=== PATIENT | male | born 1965 | race Caucasian/White ===

== ENCOUNTER → 2016-06-23 | Outpatient (CLI) | payer OTHER ==
[2016-06-23 13:33] LABS: ESTIMATED AVERAGE GLUCOSE 128 mg/dl; HA1C FLAG Normal (Normal)
== END | disposition home or self-care (01) ==
LOC: C.LABPVFM 08:47
PROVIDERS: ATTEND Nurse Practitioner Family
DX: R73.01 Impaired fasting glucose (principal)

== ENCOUNTER → 2016-07-20 | Outpatient (CLI) | payer OTHER ==
[2016-07-20 12:54] LABS: CHOLESTEROL/HDL RATIO 4.4
[2016-07-20 12:57] LABS: ALT/SGPT 39 U/L (12-78); AST/SGOT 22 U/L (15-37); BLOOD UREA NITROGEN 15 mg/dl (7-18); BUN/CREATININE RATIO 16.1 (10-20); CALCIUM 8.8 mg/dl (8.5-10.1); CARBON DIOXIDE 28 mmol/L (21-32); CHLORIDE 103 mmol/L (98-107); CREATININE 0.94 mg/dl (0.60-1.40); GLUCOSE 112 mg/dl (70-99); POTASSIUM 4.3 mmol/L (3.5-5.1); SODIUM 139 mmol/L (136-145)
[2016-07-20 12:59] LABS: ALB/GLOB RATIO 1.2 (0.9-2); ALKALINE PHOSPHATASE 77 U/L (45-117)
== END | disposition home or self-care (01) ==
LOC: C.LABPVFM 08:09
PROVIDERS: ATTEND Nurse Practitioner Family
DX: E78.5 Hyperlipidemia, unspecified (principal); R73.01 Impaired fasting glucose; J44.1 Chronic obstructive pulmonary disease with (acute) exacerbation; Z11.59 Encounter for screening for other viral diseases

== ENCOUNTER → 2016-09-03 | Outpatient (CLI) | payer OTHER ==
--- NOTE | 2016-09-03 10:01 | DIAGNOSTIC IMAGING REPORT ---
CHEST 2 VIEWS ROUTINE HISTORY: WHEEZING COMPARISON: None. FINDINGS: The right lung is clear. Linear density at the left lung base. No pleural effusions. No pneumothorax. The heart is normal in size. IMPRESSION: Linear densities within the lingula suggestive of subsegmental atelectasis or scarring. Otherwise, no acute process within the chest. Electronically signed by: Onesimo Gooden M.D. 09/03/2016 10:00 AM Dictated Date/Time: 09/03/2016 9:58 AM
== END | disposition home or self-care (01) ==
LOC: C.RADPV 09:24
PROVIDERS: ATTEND Nurse Practitioner Family
DX: R06.2 Wheezing (principal)

== ENCOUNTER → 2016-09-21 | Outpatient (CLI) | payer OTHER ==
--- NOTE | 2016-09-21 08:33 | DIAGNOSTIC IMAGING REPORT ---
SINUSES MIN 3 VIEWS ROUTINE CLINICAL HISTORY: Wheezing COPD exacerbation. Nasal congestion. COMPARISON STUDY: None. FINDINGS: The paranasal sinuses and mastoid air cells are clear. The nasal septum is essentially midline. Orbital floors and lamina papyracea. Intact. No fluid levels identified. IMPRESSION: The paranasal sinuses and mastoid air cells are clear. Electronically signed by: Onesimo Gooden M.D. 09/21/2016 8:31 AM Dictated Date/Time: 09/21/2016 8:30 AM
== END | disposition home or self-care (01) ==
LOC: C.RADPV 07:54
PROVIDERS: ATTEND Nurse Practitioner Family
DX: J44.1 Chronic obstructive pulmonary disease with (acute) exacerbation (principal); R06.2 Wheezing

== ENCOUNTER → 2016-09-22 | Outpatient (CLI) | payer OTHER | END | disposition home or self-care (01) | LOC: C.LABPVFM 11:36 | PROVIDERS: ATTEND Nurse Practitioner Family | DX: J44.1 Chronic obstructive pulmonary disease with (acute) exacerbation (principal); R06.2 Wheezing ==

== ENCOUNTER → 2016-09-24 | Outpatient (CLI) | payer OTHER ==
[2016-09-24 12:42] LABS: INR 0.9 (0.9-1.1); PARTIAL THROMBOPLASTIN RATIO 1.2
[2016-09-24 12:58] LABS: BASO % 0.5 %; BASO ABS # 0.04 K/uL (0-0.2); COMPLETE YES; EOS % 5.1 %; HEMATOCRIT 46.4 % (42-52); IG% 0.3 %; LYMPH % 25.9 %; MEAN CELL VOLUME 91.2 fL (80-100); MEAN CORPUSCULAR HEMOGLOBIN 30.5 pg (25-34); MEAN CORPUSCULAR HGB CONC 33.4 g/dl (32-36); MONO % 7.3 %; NEUT % 60.9 %; PLATELET COUNT 258 K/uL (130-400); RED BLOOD COUNT 5.09 M/uL (4.7-6.1); WHITE BLOOD COUNT 8.87 K/uL (4.8-10.8)
[2016-09-24 15:17] LABS: BLOOD UREA NITROGEN 18 mg/dl (7-18); BUN/CREATININE RATIO 20.6 (10-20); CALCIUM 8.7 mg/dl (8.5-10.1); CARBON DIOXIDE 27 mmol/L (21-32); CHLORIDE 107 mmol/L (98-107); CREATININE 0.87 mg/dl (0.60-1.40); GLUCOSE 137 mg/dl (70-99); POTASSIUM 4.4 mmol/L (3.5-5.1); SODIUM 140 mmol/L (136-145)
== END | disposition home or self-care (01) ==
LOC: C.LABPVFM 08:18
PROVIDERS: ATTEND Physician Assistant
DX: R04.2 Hemoptysis (principal)

== ENCOUNTER → 2016-09-24 | Outpatient (CLI) | payer OTHER ==
--- NOTE | 2016-09-24 09:59 | DIAGNOSTIC IMAGING REPORT ---
CT OF THE CHEST WITHOUT IV CONTRAST CLINICAL HISTORY: Hemoptysis COMPARISON STUDY: Chest x-ray dated 09/03/2016 CT DOSE: 303.50 mGy.cm TECHNIQUE: CT of the thorax was performed from the thoracic inlet to the lung bases. Images are reviewed in the axial, sagittal, and coronal planes. IV contrast was not administered for this examination. FINDINGS: Thyroid: Imaged portions of the thyroid gland are normal in appearance. Thoracic aorta: There is mild dilatation of the ascending thoracic aorta which measures 41 mm. Heart: The heart is within normal limits in size. There are mild coronary calcifications. Lungs and pleural spaces: There are no pleural effusions. There is no focal pulmonary consolidation. No endobronchial lesions are visualized. There is mild lower lobe bronchial wall thickening. There is a 5 mm very low suspicion left lower lobe perifissural solid nodule. Mediastinum: There are borderline enlarged paratracheal and subcarinal lymph nodes. Kalpana: Hilar structures are difficult to evaluate given the lack of intravenous contrast. Borderline enlarged hilar lymph nodes are suspected Axilla: Clear. Upper abdomen: Partially visualized upper abdominal viscera is within normal limits. Skeletal structures: There is a T9 vertebral body hemangioma IMPRESSION: 1. Borderline enlarged mediastinal and hilar lymph nodes 2. Mild ectasia of the ascending thoracic aorta which measures 41 mm 3. Mild lower lobe bronchial wall thickening 4. Very low suspicion left lower lobe 5 mm solid perifissural nodule Electronically signed by: Amauri Subramanian M.D. 09/24/2016 9:58 AM Dictated Date/Time: 09/24/2016 9:52 AM
== END | disposition home or self-care (01) ==
LOC: C.CTS 09:41
PROVIDERS: ATTEND Internal Medicine Pulmonary Disease
DX: R04.2 Hemoptysis (principal); Z12.11 Encounter for screening for malignant neoplasm of colon; R91.8 Other nonspecific abnormal finding of lung field

== ENCOUNTER → 2017-07-27 | Outpatient (CLI) | payer OTHER ==
--- NOTE | 2017-07-28 06:18 | PAP/PSG TECHNICIAN REPORT ---
[facility] [employer] Polysomnogram Report Study name: None Report date: 07/28/2017 Study date: 07/27/2017 Referring Physician: Reggie Saenz M.D. Name: JENIFFER, DAIJA Devries Interpreting Physician: Gaudencio Sweeney D.O. Date of : 1965 [employer] Learning Support Teacher: Kelly Batista, PSGT. Sex: Male Age: 51 StudyType: PSG Weight: 198 lbs Height: 51 years, Height 5' 7" Neck Circum:16 inches BMI: 31.01 Medications: Anoro Ellipta 62.5-25 MCG, Azithromycin 250 mg, Albuterol 0.5-2.5 mg, Venolin HFA, Nebulizer. Patient History 51 yr. old male here for a titration sleep study, he had a home sleep study done on 10/22/16, an AHI of 20.8.Pt. [facility] medical hx of COPD.ESS= 9, Neck= 16 inches. Parameters Monitored NPSG: E1-M2, E2-M1, Fp1-M2, Fp2-M1, F3-M2, F4-M2, F4-M1, C3-M2, C4-M2, C4-M1, O1-M2, O2-M2, O2-M1, T3-M2, T4-M1, P3-M2, P4-M1, CHIN1, CHIN2, HR, EKG, Legs, PFLOW, SNOR, FLOW, CFLOW, Tidal Volume, THOR, ABDO, SpO2, PLTH, CPRESS, ETCO2 Wave, ETCO2, pH Sleep Architecture Sleep Stages Time at Lights Off 8:15:21 PM STAGES Time (min.) TST (%) Time at Lights On 5:37:51 AM Wake 153.0 -- Total Recording Time (TRT) 564.00 min. N1 26.0 6 Total Sleep Period (TSP) 473.5 min. N2 284.5 69 Total Sleep Time (TST) 409.5min. N3 2.0 0 Awake Time 154.5 min. REM 97.0 24 Wake after Sleep Onset 90.5 min. Sleep Efficiency (SE) 73 % Sleep Onset Latency (BENNY) 62.5 min. Number of Stage 1 Shifts None Awakenings 15 Stage Changes 68 Number of REM periods 5 REM 97.0 24 REM Latency 127.5 min. NREM 312.5 76 Body Position Analysis Supine Right Left Side Prone Vertical Total Sleep Time (min.) 283.0 75.0 153.9 228.85 0.0 0.2 Total Sleep Time (%) 44% 18% 38% 56 0% N/A% Total Sleep Time REM (min.) 14.7 19.0 63.3 None 0.0 0.0 Total Sleep Time NREM (min.) 166.0 56.0 90.5 None 0.0 0.0 Intermittent Wake (min.) 102.4 27.5 22.9 None 0.0 0.2 Total Sleep Period (%) 49% None None None None None Arousals Myoclonus (PLM) * Events Count Index Events Count Index Spontaneous 56 8 Events Awake (PLMW) 3 1.2 Respiratory 4 0.6 Events Asleep w/ Arousal (PLMA) 14 2.1 PLM 13 2 Events Asleep w/o Arousal (PLMS) 200 29.3 Snoring 3 0 Total Asleep 214 31.4 Total 76 11 Total 217 23 Respiratory Analysis * CA OA MA CH H RERA Total Count 2 0 0 0 30 0 32 Index 0.3 0.0 0.0 0 4.4 0 4.7 Mean Duration 12.1 0.0 0.0 0.00 13.5 0.0 13.4 Longest Duration 12.3 0.0 0.0 0.00 0.0 0.0 21.5 Respiratory Event Summary Total Supine ~Supine Right Left Prone REM NREM Apneas Count 2 0 2 1 1 N/A 0 2 Index 0.3 0 1 0.8 0.4 N/A 0 0 Hypopneas (4% Desat) Count 30 27 3 1 2 N/A 5 25 Index 4.4 9.0 1 0.8 0.8 N/A 3.1 4.8 Apneas & All Hypopneas Count 32 27 5 2 3 N/A 5 27 Index 4.7 9 1 2 1 N/A 3.1 5.2 Respiratory Events (Cell Tuber Hand+All Hyp+RERA) Count 32 27 5 2 3 N/A 5 27 Index 4.7 9 1 1.6 1.2 N/A 3.1 5.2 Respiratory Related Arousal Count 4 27 1 0 1 N/A 0 4 Index 0.6 1 0 0 0 N/A 0 1 Snoring Analysis Supine Right Left Prone REM NREM Total Snore duration 8.0 min Snores count 256 12 34 N/A 10 292 302 Snore mean duration 1.6 Sec Snores index 85 10 13 N/A 6.2 56.1 44.2 TST with snoring (%) 1.9% Desaturation Event Summary: Minimum %SpO2 Event Count Mean/Min/Max Duration(sec.) Desaturation Index % Time In Bed > 90 52 21.2 / 9.5 / 58.3 14.0 40.1 86 - 90 34 17.2 / 9.5 / 41.0 6.2 59.8 81 - 85 0 N/A 0.0 0.1 76 - 80 0 N/A 0.0 0.0 71 - 75 0 N/A 0.0 0.0 66 - 70 0 N/A 0.0 0.0 61 - 65 0 N/A 0.0 0.0 56 - 60 0 N/A 0.0 0.0 51 - 55 0 N/A 0.0 0.0 < 50 0 N/A 0.0 0.0 Total REM NREM Awake <50% 0.0 min. 0.0 min. 0.0 min. 0.0 min. 51 - 60% 0.0 min. 0.0 min. 0.0 min. 0.0 min. 61 - 70% 0.0 min. 0.0 min. 0.0 min. 0.0 min. 71 - 80% 0.0 min. 0.0 min. 0.0 min. 0.0 min. 81 - 90% 332.1 min. 52.9 min. 225.3 min. 53.9 min. 91 - 100% 222.2 min. 43.9 min. 86.9 min. 91.3 min. Average 90 90 90 91 Minimum SpO2 84 84 84 86 Desaturation Event Index 6.3 10.5 8.1 0.4 # Desat. Events below 89% 50 13 37 0 Time(%) with Saturation below 89% 8.8 2.1 5.8 0.9 Time(min.) with Saturation below 89% 48.9 11.9 32.0 5.0 Heart Rate Analysis End Tidal CO2 Analysis Min (bpm) Max (bpm) Average (bpm) TSP (mins) % of TSP Awake 31 127 75 Above 55 mmHg 0.0 0.0 NREM 55 127 69 50-55 mmHg 0.0 0.0 REM 53 99 65 45-50 mmHg 409.5 100.0 Overall 53 127 68 40-45 mmHg 0.0 0.0 35-40 mmHg 0.0 0.0 30-35 mmHg 0.0 0.0 Average ETCO2 0.0 Supplemental O2 Values Minimum O2 level: None Value Start Time End Time [employer] Comments PAP Study: Mr. Pope slept in the right, left, and supine positions. No cardiac arrhythmia or PLM's noted. No bruxism noted. CPAP was initiated at +4 CMH2O and up-titrated to an optimal level of +11 CMH2O, which nearly eliminated all respiratory events and snoring. A F [employer] P medium Simplus, was used during titration Mr. Pope awoke to use the restroom one time during the night. Mr. Pope stated, I did sleep better than I do when I am in my own bed. The final report will be interpreted and signed by a sleep physician. The completed physician report will then be placed in the patient medical record. Therapy Event: Therapy (cm H20) 0 4 6 8 9 10 11 Total Time at Pressure (min.) 1.8 69.9 46.4 30.3 56.1 196.2 161.8 TST at Pressure (min.) 0.0 7.2 35.9 26.3 56.1 154.7 129.3 # Periods 1 1 1 1 1 1 1 Sleep Onset (min.) N/A 60.7 0.0 0.0 0.0 0.0 0.0 REM Onset (min.) N/A N/A N/A N/A 41.6 0.0 20.8 Sleep Efficiency % 0 10 77 86 100 78 79 Wakefulness (%) 100.0 89.8 22.6 13.2 0.0 21.1 20.1 Wakefulness (min.) 1.8 62.7 10.5 4.0 0.0 41.5 32.5 NREM 1 (%) 0.0 3.6 21.5 23.1 0.0 1.8 1.9 NREM 1 (min.) 0.0 2.5 10.0 7.0 0.0 3.5 3.0 NREM 2 (%) 0.0 6.7 51.5 63.7 74.3 58.9 49.0 NREM 2 (min.) 0.0 4.7 23.9 19.3 41.6 115.7 79.3 NREM 3 (%) 0.0 0.0 4.3 0.0 0.0 0.0 0.0 NREM 3 (min.) 0.0 0.0 2.0 0.0 0.0 0.0 0.0 REM (%) 0.0 0.0 0.0 0.0 25.7 18.1 29.0 REM (min.) 0.0 0.0 0.0 0.0 14.4 35.6 47.0 # Arousals N/A 2 14 10 5 27 18 Arousal Index N/A 16.8 23.4 22.8 5.4 10.5 8.4 # Snore N/A 3 197 28 9 44 21 Snore Index N/A 25.2 328.9 63.9 9.6 17.1 9.7 AHI N/A 33.6 21.7 13.7 3.2 1.2 1.4 AHI Supine N/A 33.6 21.7 13.7 3.2 1.1 N/A AHI Non-Supine N/A N/A N/A N/A N/A 1.2 1.4 NREM AHI N/A 33.6 21.7 13.7 0.0 1.0 1.5 REM AHI N/A N/A N/A N/A 12.5 1.7 1.3 RDI N/A 33.6 21.7 13.7 3.2 1.2 1.4 # Obstructive N/A 0 0 0 0 0 0 # Central Ap N/A 0 0 0 0 1 1 # Mixed N/A 0 0 0 0 0 0 # Hypopneas N/A 4 13 6 3 2 2 RERAS N/A 0 0 0 0 0 0 Total Respiratory Events N/A 4 13 6 3 3 3 Time Below SpO2 89.00% (min.) 0.0 3.5 5.6 6.2 18.8 3.9 5.9 Mean NREM SpO2 (%) N/A 89 90 89 89 90 90 Mean REM SpO2 (%) N/A N/A N/A N/A 88 90 91 Mean Sleep SpO2 (%) N/A 89 90 89 89 90 90 Min NREM SpO2 (%) N/A 86 86 84 86 87 87 Min REM SpO2 (%) N/A N/A N/A N/A 84 84 87 Position Supine (min.) 0.0 7.2 35.9 26.3 56.1 55.2 0.0 Position Non-supine (min.) 0.0 0.0 0.0 0.0 0.0 99.5 129.3 LM Index Sleep N/A 58.7 45.1 27.4 12.8 59.3 1.4 LM Index NREM N/A 58.7 45.1 27.4 13.0 63.9 0.0 LM Index REM N/A N/A N/A N/A 12.5 43.9 3.8 Mean Heart Rate (bpm) N/A 75 75 71 71 67 65 Min Heart Rate (bpm) N/A 69 64 60 57 55 53
--- NOTE | 2017-08-01 11:18 | POLYSOMNOGRAPH REPORT ---
CLINICAL DATA: The patient is a 51-year-old male. He had a home sleep study done in October 2016. This showed moderate sleep apnea. He had a 3-night cumulative apnea/hypopnea index using the 4% desaturation role of 13.4 events per hour. The maximum was 20.8 events per hour. He is referred for a CPAP titration study. SLEEP ARCHITECTURE: The total sleep period was 473.5 minutes. The total sleep time was 409.5 minutes. The sleep efficiency is moderately reduced to 73%. The sleep latency was prolonged at 62.5 minutes. Wake after sleep onset was 90.5 minutes. Sleep consisted of stage N1 6%, stage N2 69%, stage N3 0%, and stage REM 24%. AROUSAL DATA: The patient had a total of 76 arousals including 56 spontaneous arousals, 4 respiratory arousals, 13 PLM arousals, and 3 snoring arousals. The arousal index was 11. PERIODIC LIMB MOVEMENT DATA: The patient had a total of 214 periodic limb movements of sleep for a PLM index of 31.4. There were 14 arousals, associated with limb movements for a PLM arousal index of only 2.1. ECHOCARDIOGRAM: The minimum heart rate was 53 beats per minute. The average heart rate was 68 beats per minute. No arrhythmias noted. RESPIRATORY DATA: The patient's respiratory events were treated with nasal CPAP, which was titrated to an optimum level of 11 cm. He had a total of 32 respiratory events including 2 central apneas and 30 hypopneas. The longest apnea was 12.3 seconds. The mean duration of the hypopneas was 13.5 seconds. The apnea/hypopnea index was 4.7 events per hour. He was at the final pressure of 11 cm for 161.8 minutes. The apnea/hypopnea index at this level was only 1.4. OXIMETRY DATA: The average saturation was 90%. The minimum saturation was 84%. There was a total of 48.9 minutes with saturations less than 89%. This primarily occurred in the first half of the night when the pressures were being titrated upward. There was no significant desaturations at the final pressure. VARITYPIST COMMENTS: The patient slept in the right, left, and supine positions. No arrhythmia noted. No bruxism noted. CPAP was initiated at 4 cm and up titrated to an optimal level of 11 cm which nearly eliminated all respiratory events and snoring. A [employer] Simplus size medium was used during the titration. The patient awakened to use the restroom one time during the night. He stated that he did sleep better than he does when he is in his own bed. IMPRESSION: Moderate obstructive sleep apnea -- resolved with nasal CPAP at 11 cm. COMMENTS: The patient overall did well with the CPAP titration. He had marked difficulty initiating sleep. His sleep became more consolidated as the night went on but we still had some awakenings. He had no significant residual apnea at the final pressure. There were no significant desaturations at the final pressure. RECOMMENDATIONS: 1. It is advised that the patient be started on nasal CPAP at 11 cm. 2. It is suggested that he be ordered a [employer] Simplus mask, size medium. 3. It is suggested that the patient avoid sleeping in the supine position. 4. Weight loss is advised in light of the elevation of body mass index of 31.01.
== END | disposition home or self-care (01) ==
LOC: C.NEUR 20:00
PROVIDERS: ATTEND Physician Assistant
DX: G47.33 Obstructive sleep apnea (adult) (pediatric) (principal); J44.9 Chronic obstructive pulmonary disease, unspecified; H54.7 Unspecified visual loss; F17.210 Nicotine dependence, cigarettes, uncomplicated

== ENCOUNTER → 2017-08-02 | Outpatient (CLI) | payer OTHER ==
--- NOTE | 2017-08-02 13:25 | DIAGNOSTIC IMAGING REPORT ---
CHEST 2 VIEWS ROUTINE HISTORY: 51 years-old Male ACUTE BRONCHITIS COMPARISON: Chest radiographs 09/03/2016, chest CT 10/03/2016 TECHNIQUE: PA and lateral views of the chest FINDINGS: Cardiomediastinal and hilar silhouettes are within normal limits. Linear subsegmental left basilar opacities suggest atelectasis. There is no pneumothorax, pleural effusion, focal airspace consolidation or overt pulmonary edema. Bones of the chest appear grossly intact. IMPRESSION: No acute process. The above report was generated using voice recognition software. It may contain grammatical, syntax or spelling errors. Electronically signed by: Poncho Scott M.D. 08/02/2017 1:24 PM Dictated Date/Time: 08/02/2017 1:22 PM
== END | disposition home or self-care (01) ==
LOC: C.RADPV 13:11
PROVIDERS: ATTEND Family Medicine
DX: J20.9 Acute bronchitis, unspecified (principal)

== ENCOUNTER → 2017-09-19 | Outpatient (CLI) | payer OTHER ==
[~2017-09-19] MED LIST: ATRINS NEB; FLUT1INH3; GLC/500 PO; PRVHFAIN INH; UMEC1AER
[2017-09-19 09:33] LABS: BASO % 0.2 %; BASO ABS # 0.02 K/uL (0-0.2); EOS ABS # 0.09 K/uL (0-0.5); HEMATOCRIT 44.8 % (42-52); HEMOGLOBIN 15.5 g/dL (14.0-18.0); IG# 0.03 K/uL (0.00-0.02); LYMPH % 21.3 %; LYMPH ABS # 1.99 K/uL (1.2-3.4); MEAN CELL VOLUME 89.6 fL (80-100); MEAN CORPUSCULAR HGB CONC 34.6 g/dl (32-36); MEAN PLATELET VOLUME 10.4 fL (7.4-10.4); MONO % 7.7 %; MONO ABS # 0.72 K/uL (0.11-0.59); NEUT % 69.5 %; NEUT ABS # 6.51 K/uL (1.4-6.5); PLATELET COUNT 225 K/uL (130-400); RED CELL DISTRIBUTION WIDTH CV 13.9 % (11.5-14.5); RED CELL DISTRIBUTION WIDTH SD 45.3 fL (36.4-46.3); WHITE BLOOD COUNT 9.36 K/uL (4.8-10.8)
[2017-09-19 09:41] LABS: INR 0.9 (0.9-1.1); PTT PATIENT 27.8 SECONDS (21.0-31.0)
== END | disposition home or self-care (01) ==
LOC: C.LAB1850 08:53
PROVIDERS: ATTEND Physician Assistant
DX: R04.2 Hemoptysis (principal)

== ENCOUNTER 2017-09-20 07:23 | Day surgery (SDC) | payer OTHER ==
[~2017-09-20] VITALS: Ht 165.1 cm; Wt 91.0 kg
[2017-09-20] VITALS (8 sets, daily range): BP systolic 122–140; BP diastolic 87–103; PULSE 74–86; TEMP 36.4–37.5; O2SAT 92–95; Ht 165.1 cm; Wt 91.0 kg
--- NOTE | 2017-09-20 06:41 | History and Physical ---
History & Physical Date of Service September 20, 2017. History & Physical 51-year-old gentleman here for bronchoscopic evaluation of recurrent productive cough and history of hemoptysis: PMHx includes: Moderate COPD, HLD, and PUD. He is a former smoker: 45-pack year , quit 07/2016. Exposure history: - [place] and motor vehicle fumes working highway construction x 30-years Patient initially seen 09/2016 to establish care for COPD. At that time, he dyspnea triggered by exposure to cold air, forward flexion and exertion becoming progressive in the . Early 2016 he developed symptoms of increased cough productive of white sputum and dyspnea. He reported cough with scant hemoptysis. CT chest completed (as below) and Bronchoscopy were requested however bronchoscopy cancelled secondary to travel. PFTs (as below) consistent with moderate obstructive ventilatory disease without bronchodilator response. Patient was last seen early June 2017 at which time he was symptomatic of productive cough dyspnea and wheeze. He was prescribed a course of azithromycin and prednisone which she states helped temporarily until symptoms returned and since that time he has been prescribed multiple courses of antibiotics and steroids by his primary care physician. He was prescribed additional course of azithromycin + prednisone 07/06/2017, doxycycline + prednisone 08/02/2017, and cefuroxime + prednisone 08/25/2017. He states that with each of these courses symptoms of cough productive of palencia/green sputum, dyspnea, and wheeze improved temporarily then returned with completion of antibiotic + steroid. Of note he had not been taking his inhalers consistently until approximately 1 week ago. He is currently on his final day cefuroxime + prednisone. Prior inhalers: Breo, Anoro, Stiolto, Atrovent, Ventolin + spacer, albuterol- ipratropium nebulized although he has used these inconsistently in the past. CT chest 09/24/2016: 5 mm low suspicion LLL perifissural solid nodule. Mild lower lobe bronchial wall thickening. Borderline enlarged tracheal and subcarinal lymph nodes. PFT 11/29/2016: Moderate obstructive ventilatory disease with FEV1 of 64 %. No significant post bronchodilator response. FVC: 3.12/70 %, FEV1: 2.3/64 %, FEV1/FVC: 74 %/92 %, FEF 25-75 %: 1.67/46 % Unattended polysomnogram 10/2016: was diagnostic of mild sleep apnea ( AHI 8.6 , 20.8, 12.4 for - 3 night average: 13.4). Smoking History: DAIJA is a former smoker. He averages of 1 pack(s) of cigarettes per day. He began smoking at age 17. He quit smoking at age [age]. Medical History: Patient has no personal history of cancer. Patient has history of COPD. Occupational History: ADIJA has a history of occupational exposures to: - Asbestos: NO - Nickel: NO - Chromium: NO DAIJA does not have a history of radon exposure. His home has not been tested for radon. Review of Systems Constitutional: recent weight gain, but no fever and no chills. Eyes: negative. ENT: no sore throat and no hoarseness. Cardiovascular: negative, no chest pain, no palpitations and no extremity edema. Respiratory: cough, wheezing and shortness of breath during exertion, but as noted in HPI and no PND. Gastrointestinal: heartburn, but no abdominal pain. Musculoskeletal: negative. Integumentary: negative. Hematologic/Lymphatic: no swollen glands, no tendency for easy bleeding, no tendency for easy bruising and no swollen glands in the neck. Active Problems 1. Apnea, sleep (G47.30) 2. COPD, moderate (FEV1: 64%) 3. Decreased vision 4. Encounter for smoking cessation counseling 5. Hemoptysis 6. Hyperlipidemia 7. Impaired fasting glucose 8. Sleep disturbances 9. History of Tubular adenoma of colon 10. Weight gain, abnormal PsHx: Family History 1. Family history of diabetes mellitus (Z83.3) 2. Family history of hypertension (Z82.49) 3. Family history of lung cancer (Z80.1) 4. Family history of hypertension (Z82.49) Social History Smokes 1 pack of cigarettes per day (F17.210) Current Meds 1. Cefuroxime Axetil 500 MG Oral Tablet; 1 tab every 12 hours for 5 days; 2. PredniSONE 20 MG Oral Tablet; TAKE 2 TABLETS DAILY WITH FOOD; 3. Anoro Ellipta 62.5-25 MCG/INH Inhalation Aerosol Powder Breath Activated; INHALE 1 PUFFS Daily 4. Ipratropium-Albuterol 0.5-2.5 (3) MG/3ML Inhalation Solution; USE 1 UNIT DOSE IN NEBULIZER EVERY 4 HOURS NEEDED 5. Ventolin HFA 108 (90 Base) MCG/ACT Inhalation Aerosol Solution; use 2 puffs every 4 to 6 hours as needed (use with spacer); Vital Signs Height: 5 ft 7 in Weight: 206 lb BMI Calculated: 32.26 BSA Calculated: 2.05 Heart Rate: 83 Temperature: 97.7 F O2 Saturation: 90, RA Respiration: 20 Blood Pressure: 138 / 84, LUE, Sitting Constitutional: WDWN male. NO acute distress Head: + facial symmetry Eyes: EOMi, PERRLA, no injection Mouth: MOist mucous membranes. Dentures in place. Mallampati II/III. No erythema or exudate Respiratory: Non-labored respirations. Bilateral wheeze and coarse rales Left > Right CV: RRR, no MRG. Warm and perfused peripherally. MSK/Extremities: Moving and developed symmetrically. No peripheral edema. Neurologic: A&O. Good data recall. Appropriate affect.
[2017-09-20] MEDS ORDERED: GLC/500 PO (08:05)
[2017-09-20] MEDS ORDERED: PRVHFAIN INH (08:05)
[2017-09-20] MEDS ORDERED: FLUT1INH3 (08:05)
[2017-09-20] MEDS ORDERED: ATRINS NEB (08:05)
[2017-09-20] MEDS ORDERED: UMEC1AER (08:05)
[2017-09-20] MEDS ORDERED: NURSING VERBAL MED ORDER ONE (08:30)
--- NOTE | 2017-09-20 08:36 | History & Physical Bridge Note ---
H&P Re-Evaluation Bridge Note: I have examined the patient, reviewed the History & Physical and in the interval since the performance of the History & Physical I have noted the following changes of clinical significance: No changes noted
--- NOTE | 2017-09-20 08:37 | Pre Sedation Assessment ---
Pre Sedation Assessment General Date of Sedation: September 20, 2017. Vital Signs Past 12 Hours Date Time Temp Pulse Resp B/P (MAP) Pulse Ox O2 Delivery O2 Flow Rate FiO2 09/20/17 08:13 36.4 77 20 135/103 (114) 93 Room Air Review Cardiovascular: regular rate, rhythm, no edema, no gallop, no JVD, no murmur, normal peripheral pulses Lungs: + wheezing Pre-Sedation Airway Assessment Smoking Status: Former Smoker Hx of Sleep Apnea: Yes Hx of difficult intubation: No Short Thick Neck: Yes Thyro-mental Distance: > 3 Finger Breadths Oral Cavity: Dentures Mallampati Classification: Class II ASA Classification: Class II NPO Status Date of Last Intake of Fluids: September 19, 2017 Time of Last Intake of Fluids: 2099 Date of Last Intake of Solids: September 19, 2017 Time of Last Intake of Solids: 1999 Procedure Planning Contraindications for Sedation: None Current Medications Reviewed: Yes Notes The planned sedation has been discussed with the patient. Informed Consent was obtained. I have identified the patient, determined the appropriateness of sedation and have assessed the patient immediately prior to the procedure. All medicine(s) and interventions are by my order.
[2017-09-20] MEDS ORDERED: LIDOCAINE VISCOUS 2% 100ML TOP ONE (09:32)
[2017-09-20] MEDS ORDERED: FENTANYL CITRATE INJ 50 MCG/1 ML 2 ML VIAL IV ONE (09:32)
[2017-09-20] MEDS ORDERED: MIDAZOLAM HCL 5 MG/ML 1 ML VIAL IV ONE (09:32)
[2017-09-20] MEDS ORDERED: LIDOCAINE 4% INH SOLN 4 ML BTL TOP ONE (09:32)
[2017-09-20] MEDS ORDERED: LIDOCAINE HCL 2% LOCAL 50ML VIAL INSTIL ONE (09:32)
--- NOTE | 2017-09-20 09:40 | Bronchoscopy Procedure Note ---
Bronchoscopy Procedure Note Procedure: Bronchoscopy, conscious sedation, bronchial lavage Consent: Obtained through the patient placed into the chart Pre-procedural diagnosis: Chronic cough with associated bronchiectasis Post-procedural diagnosis: Chronic cough with associated bronchiectasis, chronic rhinitis possible GERD Start time: 912 End time: 927 Total time: 15 minutes Analgesia: 2% liquid lidocaine: Via nebulizer 4% gel lidocaine: Via right naris 2% liquid lidocaine: Via bronchoscopy Sedation: Versed IV: 5mg Fentanyl IV: 125g Procedure: The Olympus video bronchoscope was used for this procedure and passed down through the right naris Right naris/posterior naris/posterior oropharynx: Diffuse erythema with notable cobblestoning along the right naris followed by down the posterior nasopharyngeal oropharynx Glottis: Anatomically within normal limits, notable erythema along the glottis as well as the arytenoids and false vocal cords Vocal cords: Proper abduction and abduction, anatomically within normal limits Subglottis/trachea/Clair: Between the second and third tracheal rings notable posterior wall collapse during inspiration Right bronchial tree: Right mainstem bronchus: EDAC 70% Right upper lobe: Diffuse erythema minimal mucous plugs, EDAC 80% Bronchus intermedius: EDAC 70%, notable erythema posterior wall Right middle lobe: Notable erythema as well as EDAC 70%, diffuse mucus secretions Right lower lobe: Notable erythema as well as EDAC 70% Left bronchial tree: Left mainstem bronchus: Notable erythema as well as EDAC 70% Left upper lobe: Notable erythema as well as EDAC 80%, diffuse mucus secretions Lingula: Notable erythema as well as EDAC 70% Left lower lobe: Notable erythema as well as EDAC 70% Bronchial alveolar lavage: Right middle lobe EBL: None Complications: None Follow-up: ASU
--- NOTE | 2017-09-20 09:40 | Post Sedation Assessment ---
Post Sedation Assessment General Date of Sedation September 20, 2017. Vital Signs: Vital Signs Past 12 Hours Date Time Temp Pulse Resp B/P (MAP) Pulse Ox O2 Delivery O2 Flow Rate FiO2 09/20/17 09:28 83 21 143/112 97 Oxymask 10 09/20/17 09:23 94 21 169/109 97 Oxymask 6 09/20/17 09:18 83 22 140/110 98 Oxymask 6 09/20/17 09:13 80 14 136/102 100 Oxymask 6 09/20/17 08:48 77 21 132/100 94 Room Air 09/20/17 08:13 36.4 77 20 135/103 (114) 93 Room Air Post Procedure Recovery Score Activity: (2) Moves 4 extremities * Respiration: (2) Deep breath/cough Circulation: (2) +/-20% PreAnes Value Oxygen Saturation: (1) O2 needed for >90% Discharge Sedation Level of Care: Fast Track Phase II Post Sedation Plan On clinical assessment, the patient appears to have tolerated the sedation without complications. Patient is recovering as anticipated. Patient will continue to be monitored by nursing and may be discharged when sedation discharge criteria are met per below protocol. Upon Completions of procedure and additional 15 minutes continue every 5 minute vital signs and the P.A.R. score; then discharge to a Phase I or Fast Track to Phase II per the following guidelines: * Discharge Patient to appropriate Phase II area if PAR is 8 or greater or return to pre- procedure baseline. The post - procedure orders will be as directed. * If PAR score is less than 8 or not return to pre-procedure baseline then patient will follow Phase I monitoring till PAR is reached for Phase II. The Phase I may be done in procedure room or may call to secure a Phase I area. * If naloxone or flumazenil are used for reversal, hold in Phase I for an additional 60 -120 minutes before discharge to Phase II. Please call the Sedation Physician to re-evaluate and complete post-note for discharge to Phase II area. Do NOT discharge from procedure sedation or Phase 1 until post- sedation evaluation note is complete by procedure /sedation MD Sedation Discharge Instructions to be given to the patient at discharge to home.
--- NOTE | 2017-09-20 09:42 | Discharge Instructions ---
Discharge Instructions Date of Service September 20, 2017. Admission Reason for Admission: Hemoptysis Discharge Discharge Diagnosis / Problem: Excessive dynamic airway collapse, chronic rhinitis, possible GERD Discharge Goals Goal(s): Diagnostic testing Activity Recommendations Activity Limitations: resume your previous activity Exercise/Sports Limitations: as tolerated Driving or Machine Use: resume 1 day after discharge . Instructions / Follow-Up Instructions / Follow-Up At the [facility] pulmonary clinic Current Hospital Diet Patient's current hospital diet: Discharge Diet Recommended Diet: Regular Diet Procedures Procedures Performed: BRONCHOSCOPY, conscious sedation and bronchial lavage of the right middle lobe Pending Studies Studies pending at discharge: no Laboratory Results Hemoglobin A1c Test 08/26/17 07:35 Range/Units Estimated Average Glucose 140 mg/dl Hemoglobin A1c 6.5 H 4.5-5.6 % Lipid Panel Test 08/26/17 07:35 Range/Units Triglycerides Level 87 0-150 mg/dl Cholesterol Level 192 0-200 mg/dl HDL Cholesterol 47 mg/dl Cholesterol/HDL Ratio 4.1 LDL Cholesterol, Calculated 128 mg/dl Medical Emergencies . Who to Call and When: Medical Emergencies: If at any time you feel your situation is an emergency, please call 911 immediately. . Non-Emergent Contact Non-Emergency issues call your: Salesperson [employer] Call Non-Emergent contact if: temperature is above 101 . . "Provider Documentation" section prepared by Regino Martinez. .
[2017-09-20] MEDS ORDERED: SODIUM CHLORIDE 0.9% 1000ML 1,000 ML IV SCH (09:45)
== END 2017-09-20 12:10 | disposition home or self-care (01) ==
LOC: C.ACU 07:23
PROVIDERS: ATTEND Internal Medicine Critical Care Medicine
DX: R04.2 Hemoptysis (principal); R05 Cough; J31.0 Chronic rhinitis; J47.9 Bronchiectasis, uncomplicated; J44.9 Chronic obstructive pulmonary disease, unspecified; E78.5 Hyperlipidemia, unspecified; Z87.891 Personal history of nicotine dependence; Z83.3 Family history of diabetes mellitus; Z82.49 Family history of ischemic heart disease and other diseases of the circulatory system; Z80.1 Family history of malignant neoplasm of trachea, bronchus and lung; Z79.899 Other long term (current) drug therapy; Z79.52 Long term (current) use of systemic steroids

== ENCOUNTER → 2017-10-05 | Outpatient (CLI) | payer OTHER | END | disposition home or self-care (01) | LOC: C.LAB1850 14:11 | PROVIDERS: ATTEND Internal Medicine Infectious Disease | DX: J44.1 Chronic obstructive pulmonary disease with (acute) exacerbation (principal) ==